=== PATIENT | male | born 1955 | race Caucasian/White ===

== ENCOUNTER → 2024-12-22 | Outpatient (CLI) | payer MEDICARE ==
--- NOTE | 2024-12-22 11:39 | XR ---
EXAMINATION TYPE: XR bone survey complete DATE OF EXAM: 12/22/2024 11:29 AM COMPARISON: None CLINICAL INDICATION: Male, 69 years old with history of D47.2 MONOCLONAL GAMMOPATHY; PHH TECHNIQUE: Several radiographics images of the axial and appendicular spine were obtained in multipl e projections. FINDINGS: Skull: No lytic or sclerotic lesions are identified. Spine: No lytic or sclerotic lesions are identified. The pedicles are intact. There are no fractures, dislocations or subluxations. Moderate to severe degeneration changes of the cervical spine, thoraci c spine and lumbar spine. Chest: No lytic or sclerotic lesions are identified. The ribs have a normal appearance. Abdomen/Pelvis: No lytic or sclerotic lesions are identified. Extremities: No lytic or sclerotic lesions are identified. Mild degeneration changes of the visualize d joints are ossified recently standing. Right knee arthroplasty changes. IMPRESSION: No suspicious lytic lesions. No evidence for mass [facility] Dionna Sorensen, , 12/22/2024 11:36 AM
== END | disposition home or self-care (01) ==
LOC: RADXRMAIN 10:53
PROVIDERS: ATTEND Internal Medicine Rheumatology
DX: D47.2 Monoclonal gammopathy (principal)
CPT/HCPCS: 77075